=== PATIENT | male | born 1990 | race Two or more races ===

== ENCOUNTER 2017-01-14 06:59 | Emergency (ER) | payer SELFPAY ==
[~2017-01-14] VITALS: Ht 172.7 cm; Wt 63.5 kg
[2017-01-14 07:05] VITALS: BP 132/89
== END 2017-01-14 07:15 | disposition home or self-care (01) ==
LOC: ER 07:00
DX: F10.129 Alcohol abuse with intoxication, unspecified (principal)
CPT/HCPCS: 99281; A4606; Z7610; Z7502